=== PATIENT | male | born 1975 | race Caucasian/White ===

== ENCOUNTER 2019-06-24 18:57 | Inpatient (IN) | payer MEDICAID ==
[~2019-06-24] VITALS: Ht 172.7 cm; Wt 73.5 kg
[2019-06-24] MEDS ORDERED: ONDANSETRON HCL/PF 4 MG/2 ML VIAL ONE ×2 (19:10→21:47)
--- NOTE | 2019-06-24 19:14 | NUR ---
CALLED RADIOLOGY FOR STAT HEAD CT
--- NOTE | 2019-06-24 19:23 | NUR ---
PT TO CT VIA [facility].
[2019-06-24 19:26] LABS: BASOPHILS % (AUTO) 0.3 % (0.0-2.0); EOSINOPHILS % (AUTO) 0.3 % (0.0-6.0); HEMATOCRIT 39 % (39-51); HEMOGLOBIN 12.8 g/dL (13.5-17.5); LYMPHOCYTES # (AUTO) 1.5 /CMM (0.8-4.8); LYMPHOCYTES % (AUTO) 9.6 % (20.0-44.0); MEAN CORPUSCULAR HGB CONC 33 g/dl (31.0-36.0); MEAN CORPUSCULAR VOLUME 88 fL (80-96); MONOCYTES # (AUTO) 0.7 /CMM (0.1-1.30); MONOCYTES % (AUTO) 4.9 % (2.0-12.0); NEUTROPHILS # (AUTO) 12.8 /CMM (1.8-8.9); NEUTROPHILS % (AUTO) 84.9 % (43.0-81.0); PLATELET COUNT (AUTO) 309 /CMM (150-450); RED BLOOD CELL COUNT(AUTO) 4.42 MIL/uL (4.5-6.0); WHITE BLOOD COUNT (AUTO) 15.1 K/uL (4.3-11.0)
[2019-06-24] MEDS ORDERED: IV NS 0.9% 1,000 ML BAG IV ONE (19:30)
--- NOTE | 2019-06-24 19:35 | NUR ---
PT BACK FROM CT. PT AAOX4, VSS. RR EVEN & UNLABORED. PT C/O ABD PAIN 09/01. DENIES CP, SOB, DIZZINESS, N/V AT THIS TIME. PLACED ON COIL BUILDER, SR. DR. MATHEWS AWARE OF VITALS & WILL CONT TO MONITOR.
[2019-06-24 19:40] LABS: CALCIUM, SERUM 9.9 mg/dL (8.5-10.1); CARBON DIOXIDE 23 mmol/L (21-32); CHLORIDE 109 mmol/L (98-107); CREATININE 1.1 mg/dL (0.6-1.3); GLUCOSE 148 mg/dL (74-106); POTASSIUM 4.3 mmol/L (3.5-5.1); SODIUM SERUM 144 mmol/L (136-145); UREA NITROGEN, BLOOD 17 mg/dL (7-18)
[2019-06-24 19:44] LABS: ALANINE AMINOTRANSFERASE 25 U/L (12-78); ALBUMIN 3.7 g/dL (3.4-5.0); ALKALINE PHOSPHATASE 79 U/L (46-116); ASPARTATE AMINOTRANSFERASE 19 U/L (15-37); BILIRUBIN,DIRECT 0.1 mg/dL (0.0-0.2); BILIRUBIN,TOTAL 0.5 mg/dL (0.2-1.0)
[2019-06-24] MEDS ORDERED: IV NS 0.9% 500 ML BAG IV ONE (20:00)
[2019-06-24] MEDS ORDERED: PIPERACILLIN /TAZOBACTAM 3.375 G in IV D5W 50 ML IV ONE (20:00)
[2019-06-24] MEDS ORDERED: MORPHINE SULFATE INJ 2 MG/ML DISP.SYRIN IV PRN (22:00)
[2019-06-24] MEDS ORDERED: ONDANSETRON HCL/PF 4 MG/2 ML VIAL IV PRN (22:00)
[2019-06-24] MEDS ORDERED: MAGNESIUM HYDROXIDE 30 ML UDC PO PRN (22:00)
[2019-06-24] MEDS ORDERED: LORAZEPAM INJ 2 MG/ML VIAL IV PRN (22:00)
[2019-06-24] MEDS ORDERED: MAG HYDROX/AL HYDROX/SIMETH 30 ML UDC PO PRN (22:00)
[2019-06-24] MEDS ORDERED: ONDANSETRON HCL/PF 4 MG/2 ML VIAL IVP PRN (22:00)
--- NOTE | 2019-06-24 22:00 | NUR ---
RN ADMITTING NOTE RECEIVED PT FROM ER, PT AOX3, WEAK ON R/A, WELL TOLERATED , DENIES ANY PAIN, WITH NAUSEA, X 1 EPISODE OF VOMIT BILE COLOR, NO ASPIRATION HOB ELEVATED, NOTED WITH LAC#18G AND RH#18G, ALL PATENT, WELL SECURED, NO SKIN ISSUES NOTED, ADMITTING RIM TURNING FINISHER SUNG, N, ALL ORDERS ENTERED PER PROTOCOL, ALL PERSONAL BELONGINGS ACCOUNTED, SAFETY MEASURES IN PLACE, NS @ 125 ML/HR STARTED, LACTIC ELEVATED, REDRAW DONE. WILL CONT' TO MONITOR VALUES.
--- NOTE | 2019-06-24 22:02 | NUR ---
REPORT GIVEN TO ADELIA NERI FOR [facility].
[2019-06-24 22:20] VITALS: BP 121/59
[2019-06-24] MEDS ORDERED: CEFTRIAXONE 1 G VIAL ONE (22:33)
[2019-06-24] MEDS: FAMOTIDINE/PF INJ 20 MG/2 ML VIAL IV SCH (22:41)
[2019-06-24] MEDS: IV NS 0.9% 1,000 ML IV PRN (22:45)
[2019-06-24] MEDS: CEFTRIAXONE 1 G in IV D5W 50 ML IV SCH (22:45)
[2019-06-25 00:11] VITALS: BP 93/49
[2019-06-25 04:00] VITALS: BP 97/51
[2019-06-25] MEDS: IV NS 0.9% 1,000 ML IV PRN ×3 (06:14→21:32)
--- NOTE | 2019-06-25 06:26 | NUR ---
DINING SERVER CLOSING NOTE PT AOX3, WEAK ON R/A, WELL TOLERATED , DENIES ANY PAIN, WITH NAUSEA, X 1 EPISODE OF VOMIT BILE COLOR, NO ASPIRATION HOB ELEVATED, NOTED WITH LAC#18G AND RH#18G, ALL PATENT, WELL SECURED, NO SKIN ISSUES NOTED, ADMITTING INCIDENT RESPONSE ANALYST SUNG, N, ALL ORDERS ENTERED PER PROTOCOL, ALL PERSONAL BELONGINGS ACCOUNTED, SAFETY MEASURES IN PLACE, NS @ 125 ML/HR STARTED, LACTIC ELEVATED, REDRAW DONE. WILL CONT' TO MONITOR VALUES.
--- NOTE | 2019-06-25 07:38 | NUR ---
SPECIALIST ICU OPENING NOTES RECEIVED PATIENT IN BED, AWAKE, ALERT AND ORIENTED X 4. REPORTS NAUSEA AND ABDOMINAL PAIN RATED A 6/10. PATIENT IS ON ROOM AIR SATURATING WELL, RESPIRATIONS EASY AND UNLABORED, DENIES ANY SOB, NO RESPIRATORY DISTRESS NOTED. LAC G#18, RH G#18, NS INFUSING AT 125ML/HR. BOTH SITES ARE CLEAN, INTACT NO SIGNS AND SYMPTOMS OF INFILTRATION NOTED. SAFETY PRECAUTIONS MAINTAINED, BED IS IN LOW POSITION, LOCKED, CALL LIGHT IS WITHIN REACH.
[2019-06-25 07:44] LABS: BASOPHILS % (AUTO) 0.4 % (0.0-2.0); EOSINOPHILS % (AUTO) 0.1 % (0.0-6.0); HEMATOCRIT 34 % (39-51); HEMOGLOBIN 11.7 g/dL (13.5-17.5); LYMPHOCYTES # (AUTO) 1.5 /CMM (0.8-4.8); LYMPHOCYTES % (AUTO) 13.6 % (20.0-44.0); MEAN CORPUSCULAR HGB CONC 34 g/dl (31.0-36.0); MEAN CORPUSCULAR VOLUME 87 fL (80-96); MONOCYTES # (AUTO) 1.1 /CMM (0.1-1.30); NEUTROPHILS # (AUTO) 8.1 /CMM (1.8-8.9); NEUTROPHILS % (AUTO) 75.9 % (43.0-81.0); PLATELET COUNT (AUTO) 273 /CMM (150-450); RED BLOOD CELL COUNT(AUTO) 3.91 MIL/uL (4.5-6.0); WHITE BLOOD COUNT (AUTO) 10.7 K/uL (4.3-11.0)
[2019-06-25 07:50] VITALS: BP 100/56
[2019-06-25 07:50] LABS: CREATININE 0.9 mg/dL (0.6-1.3); PHOSPHORUS 3.9 mg/dL (2.5-4.9); POTASSIUM 3.7 mmol/L (3.5-5.1)
[2019-06-25 08:00] VITALS: BP 100/56
[2019-06-25] MEDS: FAMOTIDINE/PF INJ 20 MG/2 ML VIAL IV SCH ×2 (08:05→21:17)
--- NOTE | 2019-06-25 10:27 | NUR ---
PER DR. ROACH NPO DIET WAS DISCONTINUED, CLEAR LIQUID DIET ORDERS PLACED. PATIENT TOLERATED WELL DURING BREAKFAST.
[2019-06-25] MEDS: ACETAMINOPHEN 325 MG TABLET PO PRN ×2 (11:49→21:29)
[2019-06-25] MEDS: DOCUSATE SODIUM 100 MG CAPSULE PO SCH ×2 (13:11→17:04)
[2019-06-25 16:00] VITALS: BP 104/62
--- NOTE | 2019-06-25 17:00 | NUR ---
PATIENT COMPLAINED BURNING SENSATION ON LEFT AC SITE. FLUSHED LINE, NO SIGNS AND SYMPTOMS OF INFILTRATION NOTED. DUE TO PATIENT'S PAIN AND DISCOMFORT REMOVED THE LINE. PATIENT TOLERATED WELL.
--- NOTE | 2019-06-25 19:19 | NUR ---
MED SURGE RN OPENING NOTE BEDSIDE REPORT RECIEVED FROM MARK RN AND ORIENTEE DARA RN. PATIENT IN BED, ALERT AND ORIENTED X 4. POC REVIEWED QUESTIONS CONCERNS ADDRESSED. RESPIRATIONS ARE EVEN AND UNLABORED. REPORTS HE HAS VERY MILD STOMACH CRAMPS AT MID ABD. NS INFUSING AT 125ML/HR INTO RH G18 WITH NO S/S OF COMPLICATIONS. NO SIGNS AND SYMPTOMS OF INFILTRATION. PATIENT STARTED REGULAR DIET, AND IS TOLERATING PO INTAKE DENIES NAUSEA VOMITING. REVIEWED PAIN MANAGEMENT PLAN. VERBALIZED UNDERSTANDING. BED IS IN LOW POSITION, LOCKED, CALL LIGHT WITHIN REACH VERBALIZED UNDERSTANDING TO CALL FOR ASSISTANCE NEEDED. .
--- NOTE | 2019-06-25 19:20 | NUR ---
MED SURGE RN CLOSING NOTES ENDORSED REPORT TO [facility] SHIFT NURSE DELGADO. PATIENT LAYING IN BED, ALERT AND ORIENTED X 4, DENIES ANY SOB, RESPIRATIONS ARE EVEN AND UNLABORED. NS INFUSING AT 125ML/HR INTO RH G18. SITE IS CLEAN, PATENT, INTACT, NO SIGNS AND SYMPTOMS OF INFILTRATION. PATIENT HAD 1 BOWEL MOVEMENT THROUGHOUT SHIFT, REPORTS IT WAS HARD. STOOL SOFTENERES ADMINISTERED ORDERED. BED IS IN LOW POSITION, LOCKED, CALL LIGHT WITHIN REACH.
[2019-06-25 20:00] VITALS: BP 99/53
--- NOTE | 2019-06-25 21:30 | NUR ---
tyelenol prn patient c/o pain to abd /10 requesting tyelenol. tyelenol administered as ordered prn.
[2019-06-25] MEDS: CEFTRIAXONE 1 G in IV D5W 50 ML IV SCH (21:32)
[2019-06-26 04:22] VITALS: BP 90/38
[2019-06-26] MEDS: IV NS 0.9% 1,000 ML IV PRN (06:13)
--- NOTE | 2019-06-26 06:31 | NUR ---
MED SURGE PM RN CLOSING NOTES PATIENT LAYING IN BED, ALERT AND ORIENTED X 4, DENIES ANY SOB, RESPIRATIONS ARE EVEN AND UNLABORED. NS INFUSING AT 125ML/HR INTO RH G18. SITE IS CLEAN, PATENT, INTACT, NO SIGNS AND SYMPTOMS OF INFILTRATION. PATIENT REPORTS HE IS HAVING ABD PAIN 8/10 TO MID UPPER ABD BUT REFUSING MORPHINE. PATIEN REPORTS TYELENOL THAT WAS GIVEN LAST NIGHT DID NOT HELP THAT MUCH. REVIEWED PAIN MANAGEMENT PLAN WITH PATIENT. PATIENT ALSO REPORTING FEELING MILDLY DIZZY WHILE LAYING IN BED. BP WAS ON LOW SIDE THIS AM. PATIENT INFORMED THAT HE SHOULD NOT GET OUT OF BED AND SHOULD CALL FOR ASSISTANCE IF HE NEEDS TO GET OUT OF [place] PATIENT STATES "i WILL CALL IF I AM GOING TO GET OUT OF BED TO USE THE REST ROOM." BED IS IN LOW POSITION, LOCKED, CALL LIGHT WITHIN REACH.
--- NOTE | 2019-06-26 07:30 | NUR ---
RN NOTE: RECEIVED PATIENT IN BED, AWAKE, ALERT AND VERBALLY RESPONSIVE. PATIENT WAS SEATED IN UPRIGHT POSITION ON THE BED. RESPIRATION EVEN AND UNLABORED SATURATING 97% IN ROOM AIR. PATIENT DENIED ANY PAIN AT THIS TIME. PATIENT VERBALIZED THAT HE WAS FEELING DIZZY THE WHOLE NIGHT DESPITE STAYING IN THE BED. PATIENT WAS GIVEN AN INSTRUCTION TO STAY IN BED AND IF HE NEEDED SOME HELP/ASSISTANCE TO PUSH THE CALL LIGHT BUTTON IN ORDER FOR THE NURSE TO ASSIST HIM. PATIENT UNDERSTOOD AND AGREED. BED ALARMED AND LOCKED AT ALL TIMES. CALL LIGHT WITHIN REACH. NEEDS ANTICIPATED.
[2019-06-26 07:43] LABS: BASOPHILS % (AUTO) 0.3 % (0.0-2.0); HEMATOCRIT 33 % (39-51); HEMOGLOBIN 11.2 g/dL (13.5-17.5); LYMPHOCYTES # (AUTO) 2.1 /CMM (0.8-4.8); MEAN CORPUSCULAR HGB CONC 34 g/dl (31.0-36.0); MEAN CORPUSCULAR VOLUME 88 fL (80-96); MONOCYTES # (AUTO) 0.5 /CMM (0.1-1.30); MONOCYTES % (AUTO) 9.3 % (2.0-12.0); NEUTROPHILS # (AUTO) 2.8 /CMM (1.8-8.9); NEUTROPHILS % (AUTO) 50.4 % (43.0-81.0); PLATELET COUNT (AUTO) 216 /CMM (150-450); WHITE BLOOD COUNT (AUTO) 5.6 K/uL (4.3-11.0)
[2019-06-26 07:46] LABS: CALCIUM, SERUM 8.9 mg/dL (8.5-10.1); CREATININE 0.9 mg/dL (0.6-1.3); MAGNESIUM 1.7 mg/dL (1.8-2.4); PHOSPHORUS 2.3 mg/dL (2.5-4.9); POTASSIUM 3.8 mmol/L (3.5-5.1)
[2019-06-26 08:00] VITALS: BP 105/62
[2019-06-26] MEDS: DOCUSATE SODIUM 100 MG CAPSULE PO SCH ×2 (08:25→16:20)
[2019-06-26] MEDS: FAMOTIDINE/PF INJ 20 MG/2 ML VIAL IV SCH (08:26)
[2019-06-26] MEDS ORDERED: K PHOS NEUTRAL 250 MG TABLET PO ONE (09:30)
[2019-06-26] MEDS: Magnesium 1GM/D5W 100ML PREMIX 100 ML IV SCH ×2 (09:32→10:43)
[2019-06-26 13:00] VITALS: BP_SYST 107; BP_SYST 112; BP_SYST 99; BP_DIAS 63; BP_DIAS 65; BP_DIAS 67
--- NOTE | 2019-06-26 13:00 | NUR ---
RN NOTE: ORTHOSTATIC BP WAS DONE AND SHOWED THE RESULTS TO Purvi LARSON NP. PER ASSISTANT PRINCIPAL, START WITH THE NS 1L IV BOLUS.
--- NOTE | 2019-06-26 13:17 | NUR ---
RN NOTE: SPOKE WITH RYAN LARSON NP AND MADE HER AWARE THAT THE PATIENT WAS VERBALIZING THAT HE IS STILL FEELING LIGHTHEADED AT THIS TIME. ORTHOSTATIC BP AND NS 1L IV BOLUS X1 WAS ORDERED BY Purvi LARSON NP. ORDER NOTED AND CARRIED OUT. PATIENT MADE AWARE.
[2019-06-26] MEDS ORDERED: IV NS 0.9% 1,000 ML IV ONE (13:30)
[2019-06-26] MEDS ORDERED: METR500T PO (14:25)
[2019-06-26] MEDS ORDERED: CIPR-263 PO (14:25)
[2019-06-26 16:00] VITALS: BP 119/66
--- NOTE | 2019-06-26 17:15 | NUR ---
RN NOTE: PATIENT WAS DISCHARGED TO HOME AND DISCUSSED WITH HIM THE DISCHARGE INSTRUCTIONS PER Purvi LARSON NP. HANDED TO PATIENT THE DISCHARGE PACKET INCLUDING HIS PRESCRIPTION FOR CIPRO AND FLAGYL. PATIENT UNDERSTOOD THE DISCHARGE INSTRUCTIONS. (L) FOREARM IV SITE WAS REMOVED AND COVERED WITH DRY DRESSING AND SECURED WITH TAPE. ALL BELONGINGS WERE RELEASED WITH THE PATIENT. PATIENT WAS ACCOMPANIED BY HIS FRIEND, DEANDRE UPON DISCHARGE. ASSIGNED DENTAL AMALGAM PROCESSORKacie OCHOA WALKED THE PATIENT TO THE HOSPITAL MAIN LOBBY.
== END 2019-06-26 18:00 | disposition home or self-care (01) | DRG 247 ==
LOC: EDBD 19:00 → ER 19:00 → TELE1 20:50 → MEDSG1 06-25 10:01
PROVIDERS: ADMIT Nurse Practitioner Acute Care; ATTEND Nurse Practitioner Acute Care
DX: K56.7 Ileus, unspecified (principal); E87.2 Acidosis; I95.9 Hypotension, unspecified; E86.0 Dehydration; D64.9 Anemia, unspecified; A09 Infectious gastroenteritis and colitis, unspecified; E86.1 Hypovolemia; Z98.890 Other specified postprocedural states; K59.00 Constipation, unspecified; A08.4 Viral intestinal infection, unspecified
CPT/HCPCS: 36415; 70450-TC; 71045-TC; 80048-TC; 80076-TC; 83605-TC; 83735-TC; 84100-TC; 84484-TC; 85025-TC; 85730-TC; 86850-TC; 87040-TC; 87081-TC; G0378; J0696; J2060; J2405; J2543; J3475; J3490; J7030; J7060